=== PATIENT | male | born 1935 | race Caucasian/White ===

== ENCOUNTER → 2018-04-27 | Outpatient (CLI) | payer OTHER ==
[~2018-04-27] MED LIST: AEC81 PO; FLUT15.88 NASAL; IOHEXOL 350 MG/ML 100ML INFUS..BTL IV ONE; LEVO75TA10 PO; LISI10TA7 PO; MESALAMINE PO; METO25TA6 PO; OMEP20CA10 PO; SIMV80TA7 PO
== END | disposition home or self-care (01) ==
LOC: RAH 08:47
PROVIDERS: ATTEND Internal Medicine Cardiovascular Disease
DX: I71.4 Abdominal aortic aneurysm, without rupture (principal)
CPT/HCPCS: 74174; Q9967

== ENCOUNTER 2019-06-08 14:44 | Emergency (ER) | payer OTHER ==
[~2019-06-08 14:44] MED LIST changes: -IOHEXOL 350 MG/ML 100ML INFUS..BTL IV ONE
[2019-06-08 15:26] LABS: BASOPHILS % (AUTO) 0.3 % (0.0-5.0); EOSINOPHILS % (AUTO) 4.6 % (0.0-8.0); LYMPHOCYTES % (AUTO) 23.7 % (21.0-51.0); MEAN CORPUSCULAR HGB CONC 32.1 g/dL (32.0-36.0); MEAN CORPUSCULAR VOLUME 99.7 fL (79-99); NEUTROPHILS % (AUTO) 59.8 % (40.0-77.0); PLATELET COUNT (AUTO) 176 K/uL (130-400); RED BLOOD CELL COUNT(AUTO) 3.91 MIL/uL (4.50-6.20); RED CELL DISTRIBUTION WIDTH 13.3 % (11.0-15.5); WHITE BLOOD COUNT (AUTO) 6.6 K/uL (4.8-10.8)
[2019-06-08 15:35] LABS: CREATININE 1.1 mg/dL (0.5-1.5); POTASSIUM 3.6 mmol/L (3.5-5.1)
[2019-06-08 15:43] LABS: INR 1.03 (0.85-1.15); PARTIAL THROMBOPLASTIN TIME 31.5 SEC (26.3-35.5); PROTHROMBIN TIME 10.8 SEC (9.6-11.6)
[2019-06-08 15:45] LABS: ALBUMIN 3.3 g/dL (3.5-5.0); BILIRUBIN,TOTAL 0.6 mg/dL (0.2-1.0); TOTAL PROTEIN, SERUM 6.2 g/dL (6.0-8.3)
== END 2019-06-08 18:02 | disposition home or self-care (01) ==
LOC: EDH 14:44
DX: I26.99 Other pulmonary embolism without acute cor pulmonale (principal); I10 Essential (primary) hypertension; E03.9 Hypothyroidism, unspecified; Z87.891 Personal history of nicotine dependence
CPT/HCPCS: 36415; 71045; 80053; 82550; 84484; 85025; 85610; 85730; 93005; 93970

== ENCOUNTER → 2019-06-08 | Outpatient (CLI) | payer OTHER ==
[~2019-06-08] MED LIST changes: +FLUT15.845 NASAL; -FLUT15.88 NASAL; -OMEP20CA10 PO; +OMEP20CA12 PO; -SIMV80TA7 PO; +SIMV80TA91 PO
== END | disposition home or self-care (01) ==
LOC: RAH 07:14
PROVIDERS: ATTEND Internal Medicine Cardiovascular Disease
DX: I35.8 Other nonrheumatic aortic valve disorders (principal); I71.4 Abdominal aortic aneurysm, without rupture; I70.209 Unspecified atherosclerosis of native arteries of extremities, unspecified extremity; K75.3 Granulomatous hepatitis, not elsewhere classified; N28.1 Cyst of kidney, acquired; K86.2 Cyst of pancreas
CPT/HCPCS: 74174; Q9967

== ENCOUNTER → 2020-03-16 | Outpatient (CLI) | payer OTHER ==
[~2020-03-16] MED LIST changes: +IOHEXOL-350 50ML VIAL IV ONE; +IOHEXOL-350 75 ML VIAL IV ONE
== END | disposition home or self-care (01) ==
LOC: RAH 07:52
PROVIDERS: ATTEND Internal Medicine Cardiovascular Disease
DX: I71.4 Abdominal aortic aneurysm, without rupture (principal); K40.90 Unilateral inguinal hernia, without obstruction or gangrene, not specified as recurrent; M47.815 Spondylosis without myelopathy or radiculopathy, thoracolumbar region; Z95.820 Peripheral vascular angioplasty status with implants and grafts
CPT/HCPCS: 74174; Q9967 ×2

== ENCOUNTER 2020-05-03 07:21 | Day surgery (SDC) | payer OTHER ==
[2020-05-01 10:33] LABS: BASOPHILS % (AUTO) 0.7 % (0.0-5.0); EOSINOPHILS % (AUTO) 3.4 % (0.0-8.0); HEMATOCRIT 42.6 % (42-54); LYMPHOCYTES % (AUTO) 18.8 % (21.0-51.0); MEAN CORPUSCULAR HEMOGLOBIN 31.6 pg (27.0-33.0); MEAN CORPUSCULAR HGB CONC 32.4 g/dL (32.0-36.0); MEAN CORPUSCULAR VOLUME 97.5 fL (79-99); MONOCYTES % (AUTO) 11.3 % (3.0-13.0); NEUTROPHILS % (AUTO) 65.5 % (40.0-77.0); PLATELET COUNT (AUTO) 160 K/uL (130-400); RED BLOOD CELL COUNT(AUTO) 4.37 MIL/uL (4.50-6.20); RED CELL DISTRIBUTION WIDTH 13.2 % (11.0-15.5); WHITE BLOOD COUNT (AUTO) 8.6 K/uL (4.8-10.8)
[2020-05-01 10:39] LABS: APPEARANCE,URINE Cloudy (CLEAR); BILIRUBIN,URINE Negative (NEGATIVE); COLOR,URINE Yellow (YELLOW); GLUCOSE, URINE (UA) Negative (NEGATIVE); KETONES,URINE Negative (NEGATIVE); LEUKOCYTE ESTERASE ,URINE Large (NEGATIVE); NITRATE,URINE Negative (NEGATIVE); OCCULT BLOOD,URINE Trace (NEGATIVE); PROTEIN,URINE Negative (NEGATIVE); UROBILINOGEN,URINE 0.2 mg/dL (0.2-1.0)
[2020-05-01 10:48] LABS: CREATININE 1.1 mg/dL (0.5-1.5); INR 1.03 (0.85-1.15); PARTIAL THROMBOPLASTIN TIME 32.7 SEC (26.3-35.5); PROTHROMBIN TIME 11.1 SEC (9.6-11.6)
[2020-05-01 11:05] LABS: BACTERIA,URINE Few /HPF (None Seen); RBC,URINE 0-1 /HPF (0-1); SQUAMOUS EPITHELIAL CELL,UR Rare /HPF (0-2); WBC,URINE >100 /HPF (0-1)
[2020-05-01 14:23] VITALS: BP 99/56
--- NOTE | 2020-05-02 12:29 | NUR ---
xray abnormal chest xray reported to Coni BOWMAN , No further orders given. ok to proceed with planned procedure Addendum: 05/03/20 at 1220 by JEN CARRERA RN wrong entry abnormal UA reported to Coni BOWMAN ,no further orders given ok to proceed with planned procedure
[2020-05-03] VITALS (10 sets, daily range): BP systolic 16–142; BP diastolic 58–68
[~2020-05-03] VITALS: Ht 167.6 cm; Wt 86.5 kg
[~2020-05-03 07:21] MED LIST changes: -AEC81 PO; +APIX5TAB PO; +CETI10TA57 PO; +CHOL2000 PO; -FLUT15.845 NASAL; +HYDR25TA PO; -IOHEXOL-350 50ML VIAL IV ONE; -IOHEXOL-350 75 ML VIAL IV ONE; +LEVO100T12 PO; -LEVO75TA10 PO; -LISI10TA7 PO; +LOSA100T58 PO; +MESA0.374 PO; -MESALAMINE PO; -METO25TA6 PO; +METO50TA18 PO; -OMEP20CA12 PO; +POTA-79 PO; +SODIUM CHLORIDE 0.9% 1000ML 1,000 ML IV SCH
[2020-05-03] MEDS ORDERED: NICARDIPINE HCL 25 MG/10 ML ML IV ONE (12:43)
[2020-05-03] MEDS ORDERED: SODIUM BICARB 50MEQ 50ML VIAL 50 ML ONE (12:43)
[2020-05-03] MEDS ORDERED: HEPARIN SODIUM 1000UNIT/ML 10ML VIAL ONE (12:44)
[2020-05-03] MEDS ORDERED: MIDAZOLAM HCL 1 MG/ML 2ML VIAL ONE ×2 (12:44→14:01)
[2020-05-03] MEDS ORDERED: IODIXANOL 320 MG/ML 100 ML VIAL ONE (12:44)
[2020-05-03] MEDS ORDERED: MEPERIDINE-PF 25 MG/ML SYG ONE ×2 (12:44→14:01)
[2020-05-03] MEDS ORDERED: NITROGLYCERIN 2 MG/VIAL VIAL IV ONE (12:44)
[2020-05-03] MEDS ORDERED: LIDOCAINE HCL 2% 20ML ONE (12:44)
[2020-05-03] MEDS ORDERED: SODIUM CHLORIDE 0.9% 1000ML 1,000 ML IV SCH (15:15)
[2020-05-03] MEDS ORDERED: ONDANSETRON HCL 4 MG/2 ML VIAL IVP PRN (18:15)
--- NOTE | 2020-05-03 19:30 | NUR ---
PT DISCHARGED HOME WITH . NO HEMATOMA OR BLEEDING NOTED TO RT RADIAL ARTERY SITE. NO CHEST PAIN OR SOB. PRINTED AND VERBAL INSTRUCTIONS GIVEN. VERBALIZES UNDERSTANDING. TO CAR VIA WHEELCHAIR
== END 2020-05-03 19:30 | disposition home or self-care (01) ==
LOC: DAH 07:21
PROVIDERS: ATTEND Internal Medicine Cardiovascular Disease
DX: I71.4 Abdominal aortic aneurysm, without rupture (principal); Q25.46 Tortuous aortic arch; I10 Essential (primary) hypertension; I48.0 Paroxysmal atrial fibrillation; G47.33 Obstructive sleep apnea (adult) (pediatric); Z87.19 Personal history of other diseases of the digestive system; Z79.01 Long term (current) use of anticoagulants; Z79.899 Other long term (current) drug therapy; Z98.890 Other specified postprocedural states
CPT/HCPCS: 36245; 36415; 71045; 75625; 80048; 81001; 85025; 85610; 85730; 87077; 87088; 87186; 93005; A4216; A4221; A4222; A4223 ×3; A4606; A4663; C1769 ×6; C1887; C1894 ×2; J1644 ×2; J2175 ×2; J2250 ×2; J2405; J3490 ×4; Q9967; 75726; 99156; 99157

== ENCOUNTER 2020-08-03 09:47 | Day surgery (SDC) | payer OTHER ==
[2020-08-01 12:10] LABS: BASOPHILS % (AUTO) 0.7 % (0.0-5.0); EOSINOPHILS % (AUTO) 3.6 % (0.0-8.0); HEMATOCRIT 39.4 % (42-54); LYMPHOCYTES % (AUTO) 20.9 % (21.0-51.0); MEAN CORPUSCULAR HEMOGLOBIN 32.6 pg (27.0-33.0); MEAN CORPUSCULAR HGB CONC 33.2 g/dL (32.0-36.0); MONOCYTES % (AUTO) 9.5 % (3.0-13.0); NEUTROPHILS % (AUTO) 64.9 % (40.0-77.0); PLATELET COUNT (AUTO) 168 K/uL (130-400); RED BLOOD CELL COUNT(AUTO) 4.02 MIL/uL (4.50-6.20); RED CELL DISTRIBUTION WIDTH 13.2 % (11.0-15.5); WHITE BLOOD COUNT (AUTO) 8.1 K/uL (4.8-10.8)
[2020-08-01 12:16] LABS: APPEARANCE,URINE Clear (CLEAR); BILIRUBIN,URINE Negative (NEGATIVE); COLOR,URINE Yellow (YELLOW); GLUCOSE, URINE (UA) Negative (NEGATIVE); KETONES,URINE Negative (NEGATIVE); LEUKOCYTE ESTERASE ,URINE Small (NEGATIVE); NITRATE,URINE Negative (NEGATIVE); OCCULT BLOOD,URINE Small (NEGATIVE); PH,URINE 7.5 (5.0-8.0); PROTEIN,URINE Negative (NEGATIVE); UROBILINOGEN,URINE 0.2 mg/dL (0.2-1.0)
[2020-08-01 12:20] LABS: CREATININE 1.1 mg/dL (0.5-1.5); POTASSIUM 4.5 mmol/L (3.5-5.1)
[2020-08-01 12:23] LABS: INR 1.12 (0.85-1.15); PROTHROMBIN TIME 12.1 SEC (9.6-11.6)
[2020-08-01 12:24] LABS: PARTIAL THROMBOPLASTIN TIME 35.8 SEC (26.3-35.5)
[2020-08-01 12:40] VITALS: BP 141/69
[2020-08-01 12:43] LABS: BACTERIA,URINE Rare /HPF (None Seen); SQUAMOUS EPITHELIAL CELL,UR 0-2 /HPF (0-2)
[~2020-08-03] VITALS: Ht 170.2 cm; Wt 89.8 kg
[~2020-08-03 09:47] MED LIST changes: +FLUT16H NASAL; -SODIUM CHLORIDE 0.9% 1000ML 1,000 ML IV SCH; +SODIUM CHLORIDE 0.9% 500ML 500 ML IV SCH
[2020-08-03 10:00] VITALS: BP 118/63
== END 2020-08-03 16:25 | disposition home or self-care (01) ==
LOC: DAH 09:47
PROVIDERS: ATTEND Internal Medicine Cardiovascular Disease
DX: T82.330A Leakage of aortic (bifurcation) graft (replacement), initial encounter (principal); I10 Essential (primary) hypertension; E78.5 Hyperlipidemia, unspecified; E03.9 Hypothyroidism, unspecified; I48.0 Paroxysmal atrial fibrillation; G47.33 Obstructive sleep apnea (adult) (pediatric); I25.2 Old myocardial infarction; Z79.01 Long term (current) use of anticoagulants; Z79.890 Hormone replacement therapy; Z53.8 Procedure and treatment not carried out for other reasons; Y83.8 Other surgical procedures as the cause of abnormal reaction of the patient, or of later complication, without mention of misadventure at the time of the procedure
CPT/HCPCS: 36415; 71045; 80048; 81001; 85025; 85610; 85730; 93005; A4215; A4216; A4221; A4222; A4223 ×2; A4606; A4663; J7030

== ENCOUNTER 2020-08-29 11:00 | Inpatient (IN) | payer OTHER ==
[~2020-08-29] VITALS: Ht 167.6 cm; Wt 87.7 kg
[~2020-08-29 11:00] MED LIST changes: -POTA-79 PO; -SODIUM CHLORIDE 0.9% 500ML 500 ML IV SCH
[2020-08-29 11:34] LABS: BASOPHILS % (AUTO) 0.6 % (0.0-5.0); EOSINOPHILS % (AUTO) 2.8 % (0.0-8.0); LYMPHOCYTES % (AUTO) 18.3 % (21.0-51.0); MEAN CORPUSCULAR HEMOGLOBIN 32.4 pg (27.0-33.0); MEAN CORPUSCULAR HGB CONC 32.8 g/dL (32.0-36.0); MEAN CORPUSCULAR VOLUME 98.9 fL (79-99); NEUTROPHILS % (AUTO) 68.9 % (40.0-77.0); PLATELET COUNT (AUTO) 170 K/uL (130-400); RED BLOOD CELL COUNT(AUTO) 4.35 MIL/uL (4.50-6.20); RED CELL DISTRIBUTION WIDTH 13.3 % (11.0-15.5); WHITE BLOOD COUNT (AUTO) 8.1 K/uL (4.8-10.8)
[2020-08-29 11:42] LABS: CREATININE 1.1 mg/dL (0.5-1.5); POTASSIUM 4.1 mmol/L (3.5-5.1)
[2020-08-29 11:47] LABS: APPEARANCE,URINE Clear (CLEAR); BILIRUBIN,URINE Negative (NEGATIVE); COLOR,URINE Yellow (YELLOW); GLUCOSE, URINE (UA) Negative (NEGATIVE); KETONES,URINE Negative (NEGATIVE); LEUKOCYTE ESTERASE ,URINE Large (NEGATIVE); NITRATE,URINE Negative (NEGATIVE); OCCULT BLOOD,URINE Small (NEGATIVE); PROTEIN,URINE Negative (NEGATIVE)
[2020-08-29 11:56] LABS: BACTERIA,URINE Rare /HPF (None Seen); RENAL EPITHELIAL CELLS,URINE Rare /HPF (None Seen); TRANSITIONAL EPI CELLS,URINE Rare /HPF (None Seen)
[2020-08-29 12:10] LABS: INR 1.05 (0.85-1.15); PROTHROMBIN TIME 11.4 SEC (9.6-11.6)
[2020-08-29 12:12] LABS: PARTIAL THROMBOPLASTIN TIME 33.6 SEC (26.3-35.5)
[2020-08-30 10:34] VITALS: BP 154/72
[2020-08-31] VITALS (49 sets, daily range): BP systolic 103–192; BP diastolic 34–77
[2020-08-31] MEDS ORDERED: SODIUM CHLORIDE 0.9% 1000ML 1,000 ML IV ONE (07:29)
[2020-08-31] MEDS ORDERED: SODIUM BICARB 50MEQ 50ML VIAL 50 ML ONE (09:37)
[2020-08-31] MEDS ORDERED: IODIXANOL 320 MG/ML 100 ML VIAL ONE (09:38)
[2020-08-31] MEDS ORDERED: HEPARIN SODIUM 1000UNIT/ML 10ML VIAL ONE (09:38)
[2020-08-31] MEDS ORDERED: LIDOCAINE HCL 2% 20ML ONE (09:38)
[2020-08-31] MEDS ORDERED: NITROGLYCERIN 2 MG/VIAL VIAL IV ONE (09:38)
[2020-08-31] MEDS ORDERED: LIDOCAINE HCL-MPF 1% 5ML AMP IJ ONE (09:46)
[2020-08-31] MEDS ORDERED: MIDAZOLAM HCL 1 MG/ML 2ML VIAL ONE (09:47)
[2020-08-31] MEDS ORDERED: PROPOFOL 10 MG/ML 20ML VIAL IV ONE ×2 (09:47→10:43)
[2020-08-31] MEDS ORDERED: ROCURONIUM 10MG/1ML SYR 10 MG/ML ML ONE (09:47)
[2020-08-31] MEDS ORDERED: CEFAZOLIN SODIUM 1 GM VIAL ONE (09:54)
[2020-08-31] MEDS ORDERED: NICARDIPINE HCL 25 MG/10 ML ML IV ONE (09:54)
[2020-08-31] MEDS ORDERED: ATROPINE SULFATE 0.1 MG/ML 10 ML SYG IVP ONE (10:09)
[2020-08-31] MEDS ORDERED: ROCURONIUM BROMIDE 10MG/1ML 5ML VL ONE (10:44)
[2020-08-31] MEDS ORDERED: GLYCOPYRROLATE 0.2 MG/ML 5 ML VIAL ONE ×2 (11:18→12:38)
[2020-08-31] MEDS ORDERED: ONDANSETRON HCL 4 MG/2 ML VIAL ONE (12:38)
[2020-08-31] MEDS ORDERED: NEOSTIGMINE 5MG/5ML SYR IV ONE (12:38)
[2020-08-31] MEDS ORDERED: SODIUM CHLORIDE 0.9% 1000ML 1,000 ML IV SCH (13:00)
[2020-08-31] MEDS ORDERED: MORPHINE SULFATE 4 MG/1ML SYG IV PRN (13:00)
[2020-08-31] MEDS ORDERED: ONDANSETRON HCL 4 MG/2 ML VIAL IV PRN (13:00)
[2020-08-31] MEDS ORDERED: PHARMACY COMMUNICATION MISC SCH ×2 (13:00→13:30)
[2020-08-31] MEDS ORDERED: MORPHINE SULFATE 5 MG/ML VIAL IV PRN (13:00)
[2020-08-31] MEDS ORDERED: FENTANYL CITRATE PF 50 MCG/1 ML 2ML VIAL ONE (13:03)
[2020-08-31] MEDS ORDERED: HYDRALAZINE HCL 20 MG/ML VIAL ONE (13:14)
[2020-08-31] MEDS ORDERED: NOREPINEPHRINE 4MG/NS 250ML 250 ML IV SCH (13:30)
[2020-08-31] MEDS ORDERED: NITROGLYCERIN 50 MG/D5% WATER 250 BOT IV SCH (13:30)
[2020-08-31] MEDS: CEFAZOLIN SODIUM 1 GM VIAL IVP SCH (20:41)
[2020-08-31] MEDS: METOPROLOL TARTRATE 50 MG TAB PO SCH (20:42)
[2020-08-31] MEDS ORDERED: MESALAMINE PO SCH (21:00)
[2020-08-31] MEDS ORDERED: LOSARTAN 100 MG TABLET PO SCH (21:00)
[2020-08-31] MEDS ORDERED: SIMVASTATIN 20 MG TABLET PO SCH (21:00)
[2020-08-31] MEDS ORDERED: SIMVASTATIN PO SCH (21:00)
[2020-09-01] VITALS (13 sets, daily range): BP systolic 103–136; BP diastolic 34–76
[2020-09-01 04:11] LABS: HEMATOCRIT 35.7 % (42-54); MEAN CORPUSCULAR HEMOGLOBIN 31.5 pg (27.0-33.0); MEAN CORPUSCULAR HGB CONC 32.8 g/dL (32.0-36.0); MEAN CORPUSCULAR VOLUME 96.2 fL (79-99); RED BLOOD CELL COUNT(AUTO) 3.71 MIL/uL (4.50-6.20); RED CELL DISTRIBUTION WIDTH 13.3 % (11.0-15.5); WHITE BLOOD COUNT (AUTO) 11.3 K/uL (4.8-10.8)
[2020-09-01 04:25] LABS: POTASSIUM 3.7 mmol/L (3.5-5.1)
[2020-09-01] MEDS: CEFAZOLIN SODIUM 1 GM VIAL IVP SCH (04:57)
[2020-09-01] MEDS ORDERED: LEVOTHYROXINE 100 MCG TABLET PO SCH (06:30)
[2020-09-01] MEDS ORDERED: NON-FORMULARY MEDICATION 1 EACH (Cetirizine HCl 10 MG) PO SCH (09:00)
[2020-09-01] MEDS ORDERED: CETIRIZINE HCL 5 MG TABLET PO SCH (09:00)
[2020-09-01] MEDS ORDERED: NON-FORMULARY MEDICATION 1 EACH (Cholecalciferol (Vitamin D3) (Vitamin D3) 50 MCG) PO SCH (09:00)
[2020-09-01] MEDS ORDERED: HYDROCHLOROTHIAZIDE 25 MG TABLET PO SCH (09:00)
[2020-09-01] MEDS ORDERED: (Cholecalciferol (Vitamin D3) (Vitamin D3) 50 MCG) PO SCH (09:00)
[2020-09-01] MEDS ORDERED: FLUTICASONE PROPIONATE 50MCG/SPRAY 16 GM BOTTLE EN SCH (09:00)
[2020-09-01] MEDS: METOPROLOL TARTRATE 50 MG TAB PO SCH (09:05)
== END 2020-09-01 14:00 | disposition home or self-care (01) | DRG 269 ==
LOC: DAHIP 08-31 07:24 → EDSTATUS 08-31 11:00 → 2CH 08-31 12:38
PROVIDERS: ADMIT Internal Medicine; ATTEND Internal Medicine
PROC: B4101ZZ Fluoroscopy of Abdominal Aorta using Low Osmolar Contrast (ICD-10-PCS; principal; 2020-08-31)
PROC: 04V Lower Arteries, Restriction (ICD-10-PCS; 2020-08-31)
PROC: B4141ZZ Fluoroscopy of Superior Mesenteric Artery using Low Osmolar Contrast (ICD-10-PCS; 2020-08-31)
PROC: B4151ZZ Fluoroscopy of Inferior Mesenteric Artery using Low Osmolar Contrast (ICD-10-PCS; 2020-08-31)
DX: T82.310A Breakdown (mechanical) of aortic (bifurcation) graft (replacement), initial encounter (principal); K51.90 Ulcerative colitis, unspecified, without complications; D68.69 Other thrombophilia; G47.33 Obstructive sleep apnea (adult) (pediatric); I10 Essential (primary) hypertension; E78.5 Hyperlipidemia, unspecified; E03.9 Hypothyroidism, unspecified; I71.4 Abdominal aortic aneurysm, without rupture; I48.91 Unspecified atrial fibrillation; Y71.2 Prosthetic and other implants, materials and accessory cardiovascular devices associated with adverse incidents; Z82.49 Family history of ischemic heart disease and other diseases of the circulatory system; Z86.711 Personal history of pulmonary embolism; Z87.891 Personal history of nicotine dependence; Z80.7 Family history of other malignant neoplasms of lymphoid, hematopoietic and related tissues
CPT/HCPCS: 34710; 34711; 34712; 34713; 36245; 36415; 71045; 75726; 80048; 81001; 84443; 85025; 85027; 85610; 85730; 87077; 87088; 87186; 93005; 94660; A4344; C1725; C1760; C1769; C1887; C1894; G0378; J0360; J0461; J0690; J1644; J2250; J2405; J2704; J2710; J3010; J3490; J7030; Q9967

== ENCOUNTER → 2021-04-11 | Outpatient (CLI) | payer OTHER ==
[~2021-04-11] MED LIST changes: +IOHEXOL 350 MG/ML 100ML INFUS..BTL IV ONE
== END | disposition home or self-care (01) ==
LOC: RAH 10:00
PROVIDERS: ATTEND Internal Medicine Cardiovascular Disease
DX: I71.4 Abdominal aortic aneurysm, without rupture (principal); K86.9 Disease of pancreas, unspecified
CPT/HCPCS: 74175; Q9967

== ENCOUNTER → 2023-02-06 | Outpatient (CLI) | payer OTHER ==
[~2023-02-06] MED LIST changes: -IOHEXOL 350 MG/ML 100ML INFUS..BTL IV ONE; -LOSA100T58 PO; +LOSA100T59 PO; +POTA-364 PO
== END | disposition home or self-care (01) ==
LOC: SHCH 07:42
PROVIDERS: ATTEND Internal Medicine Cardiovascular Disease
DX: I71.40 Abdominal aortic aneurysm, without rupture, unspecified (principal); Z95.828 Presence of other vascular implants and grafts
CPT/HCPCS: 93978